=== PATIENT | male | born 1955 | race African-American/Black ===

== ENCOUNTER 2020-02-14 09:55 | Emergency (ER) | payer MEDICARE ==
[2020-02-14 10:19] LABS: Bilirubin Small (Negative); Blood, Urine Negative (Negative); Clarity Clear (Clear); Glucose, Urine (Dipstick) Negative (Negative); Ketone, Urine Negative (Negative); Leukocyte Negative (Negative); Nitrite Negative (Negative); Protein, Urine (Dipstick) Negative (Neg-Trace); pH, Urine 5.5 (5.0-9.0)
[2020-02-14 10:46] LABS: Hemoglobin 14.9 g/dL (14.0-18.0); Mean Corpuscular HGB CONC 32.3 g/dL (32.0-36.0); Mean Corpuscular Hemoglobin 30.1 pg (27.0-31.0); Mean Corpuscular Volume 93.2 fL (78.0-98.0); Mean Platelet Volume 7.3 fL (7.4-10.4); Platelet Count 228 thou/uL (130-400); RBC Distribution Width 12.7 % (11.5-14.5); Red Blood Cell (RBC) Count 4.94 mill/uL (4.70-6.10); White Blood Cell (WBC) Count 4.2 thou/uL (4.8-10.8)
[2020-02-14] MEDS ORDERED: Morphine 10 MG/ML VIAL ONE (10:46)
[2020-02-14] MEDS ORDERED: Pantoprazole 40 MG VIAL ONE (10:47)
[2020-02-14] MEDS ORDERED: Ketorolac Tromethamine 30 MG/ML VIAL ONE (10:47)
[2020-02-14 10:56] LABS: ALT (SGPT) 27 U/L (8-55); AST (SGOT) 29 U/L (5-34); Albumin 4.6 g/dL (3.4-4.8); Alkaline Phosphatase 53 U/L (40-110); Anion Gap 13 mmol/L (10-20); BUN (Urea Nitrogen) 19 mg/dL (8.4-25.7); Bilirubin, Total 0.6 mg/dL (0.2-1.2); Calc. Creatinine Clearance 0 mL/min (70-130); Carbon Dioxide 27 mmol/L (23-31); Chloride 104 mmol/L (98-107); Glucose 124 mg/dL (80-115); Potassium 4.2 mmol/L (3.5-5.1); Protein, Total 7.6 g/dL (5.8-8.1); Sodium 140 mmol/L (136-145)
[2020-02-14 11:07] LABS: Band 4 % (5-11); Eosinophils 4 % (0-10); Lymphocytes 18 % (21-51); MDiff Complete? YES; Monocytes 11 % (0-10); Neutrophil 55 % (42-75); Reactive Lymphocytes 6 % (0-10)
--- NOTE | 2020-02-14 14:18 | CT ---
CT ABDOMEN AND PELVIS WITHOUT CONTRAST: 02/14/20 This study was done to evaluate left flank pain. Comparison is made with a prior CT of 09/06/13. The lung bases are clear. The liver, spleen, pancreas, gallbladder, adrenal glands, kidneys and abdom inal aorta showed no acute changes within the limitations of a noncontrast study. A water density rou nded cyst is seen in the mid to lower portion of the right kidney which was present before, but its s ize has grown in the interval. In the left kidney, there is a similar 2 cm area in the middle third. It was present before, but was much smaller. CT numbers today are generally water density, however. O ne would need an ultrasound to absolutely confirm that these were simple cysts, but this seems more likely than not. Specifically, there was no sign of renal calculi or ureteral calculi. No free air or free fluid was seen in the abdomen. There were no acute findings involving bowel. The appendix appears normal. Diverticulosis, particularly in the sigmoid region, was seen. There was no s ign of diverticulitis, however. The urinary bladder and surrounding structures are obscured by artifa ct from bilateral hip arthroplasties. IMPRESSION: 1. No evidence of urinary tract stones or obstruction. 2. Diverticulosis, particularly sigmoid, but no signs of diverticulitis. 3. Bilateral renal cysts which are larger than in 2014. An elective ultrasound would be needed t o confirm that they were merely purely cystic, though the odds are fairly high given their water dens ities. Findings discussed with Dr. Armenta at approximately 1118 on 02/14/20. POS: HOME
== END 2020-02-14 12:00 | disposition home or self-care (01) ==
LOC: BURERS 09:55
DX: S29.011A Strain of muscle and tendon of front wall of thorax, initial encounter (principal); E78.5 Hyperlipidemia, unspecified; Z79.899 Other long term (current) drug therapy; X58.XXXA Exposure to other specified factors, initial encounter
CPT/HCPCS: 36415; 74176; 80053; 81003; 83605; 84484; 85025; 93005; C9113; J1885; J2270

== ENCOUNTER 2021-07-14 11:38 | Emergency (ER) | payer MEDICARE, OTHER ==
[2021-07-14] MEDS ORDERED: Ketorolac Tromethamine 60 MG/2 ML VIAL ONE (12:07)
[2021-07-14] MEDS ORDERED: Diazepam 5 MG TAB ONE (12:10)
== END 2021-07-14 12:35 | disposition home or self-care (01) ==
LOC: BURERS 11:38
DX: S39.012A Strain of muscle, fascia and tendon of lower back, initial encounter (principal); I10 Essential (primary) hypertension; E78.5 Hyperlipidemia, unspecified; C43.62 Malignant melanoma of left upper limb, including shoulder; X50.9XXA Other and unspecified overexertion or strenuous movements or postures, initial encounter
CPT/HCPCS: 96372; 99283; J1885

== ENCOUNTER 2021-10-30 08:28 | Emergency (ER) | payer MEDICARE, OTHER ==
[2021-10-30] MEDS ORDERED: Morphine 4 MG/ML VIAL ONE (08:45)
[2021-10-30] MEDS ORDERED: methylPREDNISolone Sod Succ/PF 125 MG/2 ML VIAL ONE (08:45)
[2021-10-30] MEDS ORDERED: Ketorolac Tromethamine 30 MG/ML VIAL ONE (08:45)
[2021-10-30] MEDS ORDERED: Diazepam 10 MG/2 ML SYRINGE ONE ×2 (09:56→10:00)
== END 2021-10-30 11:18 | disposition home or self-care (01) ==
LOC: BURERS 08:28
DX: G89.29 Other chronic pain (principal); M54.50 Low back pain, unspecified; I10 Essential (primary) hypertension; E78.5 Hyperlipidemia, unspecified
CPT/HCPCS: 96374; 96375; J1885; J2270; J2930; J3360

== ENCOUNTER 2022-01-29 12:05 | Emergency (ER) | payer MEDICARE, OTHER ==
[2022-01-29] MEDS ORDERED: HYDROcodone/Acetaminophen 10/325 mg Tablet ONE (12:20)
[2022-01-29] MEDS ORDERED: Ketorolac Tromethamine 60 MG/2 ML VIAL ONE (12:20)
== END 2022-01-29 13:12 | disposition home or self-care (01) ==
LOC: BURERS 12:05
DX: S39.012A Strain of muscle, fascia and tendon of lower back, initial encounter (principal); E78.5 Hyperlipidemia, unspecified; I10 Essential (primary) hypertension; X50.1XXA Overexertion from prolonged static or awkward postures, initial encounter
CPT/HCPCS: 72100; 72170; 96372; J1885